=== PATIENT | male | born 1970 | race Caucasian/White ===

== ENCOUNTER 2022-05-05 13:45 | Emergency (ER) | payer MEDICAID ==
[~2022-05-05] VITALS: Ht 182.9 cm; Wt 108.2 kg
[2022-05-05] MEDS ORDERED: PROP60TA14 PO (14:08)
[2022-05-05] MEDS ORDERED: CYMB60CA4 PO (14:08)
[2022-05-05] MEDS ORDERED: RAMI1CAP21 PO (14:08)
[2022-05-05] MEDS ORDERED: ASPI81CH33 PO (14:08)
[2022-05-05] MEDS ORDERED: KETOROLAC 60MG 2ML VIAL IM ONE (14:45)
[2022-05-05] MEDS ORDERED: predniSONE 20 MG TAB PO ONE (14:45)
[2022-05-05] MEDS ORDERED: methocarbamoL 500 MG TAB PO ONE (14:45)
[2022-05-05 21:42] LABS: RSV AMPLIFICATION NEGATIVE (NEGATIVE)
[2022-05-05] MEDS ORDERED: METOPROLOL TART 25 MG TABLET PO ONE (22:25)
[2022-05-05] MEDS ORDERED: DULoxetine 30MG CAPSULE (CYMBALTA) PO ONE (22:25)
[2022-05-05 23:17] VITALS: BP 168/97
[2022-05-05 23:56] VITALS: BP 159/74
== END 2022-05-05 23:58 | disposition short-term general hospital (02) ==
LOC: M ED 13:45
DX: M54.9 Dorsalgia, unspecified (principal); M62.81 Muscle weakness (generalized); M46.96 Unspecified inflammatory spondylopathy, lumbar region; M51.36 Other intervertebral disc degeneration, lumbar region; I10 Essential (primary) hypertension; Z87.442 Personal history of urinary calculi; K21.9 Gastro-esophageal reflux disease without esophagitis; F12.10 Cannabis abuse, uncomplicated
CPT/HCPCS: 72148; 87631; 99284; J7512

== ENCOUNTER → 2022-09-12 | Outpatient (REF) | payer OTHER, MEDICAID ==
[~2022-09-12] MED LIST: ASPI81CH33 PO; CYMB60CA4 PO; PROP60TA14 PO; RAMI1CAP21 PO
[2022-09-12 18:56] LABS: MAGNESIUM LEVEL 2.2 MG/DL (1.8-2.4)
== END ==
LOC: M LAB REF 17:46
PROVIDERS: ATTEND Nurse Practitioner Family
DX: R52 Pain, unspecified (principal)

== ENCOUNTER 2022-11-14 12:07 | Emergency (ER) | payer MEDICAID, OTHER ==
[~2022-11-14] VITALS: Ht 185.4 cm; Wt 104.5 kg
[2022-11-14 12:09] VITALS: BP 134/84; TEMP 98.8; O2SAT 99
[2022-11-14] MEDS ORDERED: ATOR40TA75 PO (12:29)
[2022-11-14] MEDS ORDERED: ONDA4TAB6 PO (12:29)
== END 2022-11-14 14:46 | disposition left against medical advice (07) ==
LOC: M ED 12:07
DX: Z53.21 Procedure and treatment not carried out due to patient leaving prior to being seen by health care provider (principal)

== ENCOUNTER → 2022-12-14 | Outpatient (REF) | payer OTHER ==
[~2022-12-14] MED LIST changes: +ATOR40TA75 PO; +ONDA4TAB6 PO
[2022-12-14 18:09] LABS: BLOOD UREA NITROGEN 11 MG/DL (9-23); CALCIUM LEVEL 9.5 MG/DL (8.5-10.1); CARBON DIOXIDE LEVEL 27 MMOL/L (20-31); CHLORIDE LEVEL 104 MMOL/L (98-107); GLOMERULAR FILTRATION RATE > 60.0 (>56); GLUCOSE, FASTING 107 MG/DL (60-100); POTASSIUM SERUM 4.2 MMOL/L (3.5-5.1); SODIUM LEVEL 140 MMOL/L (136-145)
== END ==
LOC: M LAB REF 16:41
PROVIDERS: ATTEND Nurse Practitioner Family
DX: E78.5 Hyperlipidemia, unspecified (principal); R00.0 Tachycardia, unspecified

== ENCOUNTER → 2023-01-04 | Outpatient (REF) | LOC: M PLAIMG 15:12 | PROVIDERS: ATTEND Internal Medicine | DX: M50.30 Other cervical disc degeneration, unspecified cervical region (principal); M47.817 Spondylosis without myelopathy or radiculopathy, lumbosacral region; M54.2 Cervicalgia; M54.50 Low back pain, unspecified ==

== ENCOUNTER → 2023-03-14 | Outpatient (REF) | payer OTHER | LOC: M LAB REF 17:58 | PROVIDERS: ATTEND Nurse Practitioner Family | DX: R94.6 Abnormal results of thyroid function studies (principal) ==

== ENCOUNTER → 2023-05-15 | Outpatient (REF) | payer OTHER ==
[2023-05-15 13:38] LABS: C REACTIVE PROTEIN QUANTITATIV < 0.40 MG/DL (<1.0)
[2023-05-15 13:47] LABS: URIC ACID 5.3 MG/DL (3.7-9.2)
[2023-05-17 00:07] LABS: ANA (HEP2) Negative (.)
== END ==
LOC: M LAB REF 12:22
PROVIDERS: ATTEND Nurse Practitioner Family
DX: M10.9 Gout, unspecified (principal); M79.641 Pain in right hand

== ENCOUNTER 2023-11-20 17:27 | Emergency (ER) | payer OTHER ==
[~2023-11-20] VITALS: Ht 185.4 cm; Wt 107.6 kg
[~2023-11-20 17:27] MED LIST changes: -AMOX875T2 PO; -IBUP-1022 PO; -PROP120C PO; -PROP160C PO; -REFR0.5D8 OS
[2023-11-20 17:32] VITALS: BP 155/86; TEMP 97.8; O2SAT 98
== END 2023-11-20 19:10 | disposition left against medical advice (07) ==
LOC: M ED 17:27
DX: Z53.21 Procedure and treatment not carried out due to patient leaving prior to being seen by health care provider (principal)

== ENCOUNTER → 2023-11-20 | Outpatient (REF) | payer MEDICAID, OTHER, SELFPAY ==
[~2023-11-20] MED LIST changes: +AMOX875T2 PO; +IBUP-1022 PO; +ONDA-282 PO; -ONDA4TAB6 PO; +PROP120C PO; +PROP160C PO; +RAMI1.258 PO; -RAMI1CAP21 PO; +REFR0.5D8 OS
== END ==
LOC: M LAB REF 11:56
PROVIDERS: ATTEND Nurse Practitioner Family
DX: R22.0 Localized swelling, mass and lump, head (principal)

== ENCOUNTER 2023-11-21 00:39 | Inpatient (IN) | payer MEDICAID, OTHER, SELFPAY ==
[~2023-11-21] VITALS: Ht 185.4 cm; Wt 107.0 kg
[2023-11-21] MEDS: ONDANSETRON 4MG 2ML VIAL IV ONE (05:07)
[2023-11-21] MEDS: dexAMETHasone 20MG/5ML VIAL IV ONE (05:07)
[2023-11-21] MEDS: PIPERACILLIN/TAZOBACTAM SOD 4.5 GM in D5W MINI-BAG PLUS 50 ML IV ONE (05:07)
[2023-11-21] MEDS: MORPHINE 4 MG/ML 1ML VIAL IV ONE (05:07)
[2023-11-21 05:16] LABS: HEMATOCRIT 43.6 % (42.0-52.0); HEMOGLOBIN 12.2 g/dl (13.5-17.5); MEAN CORPUSCULAR HEMOGLOBIN 20.3 pg (27.0-33.0); MEAN CORPUSCULAR VOLUME 72.7 fl (80.0-96.0); PLATELET COUNT, AUTOMATED 218 10^3/uL (150-450)
[2023-11-21] MEDS ORDERED: oxyCODONE 5MG TAB PO PRN (06:00)
[2023-11-21] MEDS ORDERED: ACETAMINOPHEN 325MG/10.15ML UDC PO PRN (06:00)
[2023-11-21 06:07] LABS: BLOOD UREA NITROGEN 7 MG/DL (9-23); CARBON DIOXIDE LEVEL 23 MMOL/L (20-31); CHLORIDE LEVEL 109 MMOL/L (98-107); CREATININE FOR GFR 0.71 MG/DL (0.70-1.30); GLOMERULAR FILTRATION RATE > 60.0 (>56); GLUCOSE, FASTING 89 MG/DL (60-100); MAGNESIUM LEVEL 1.9 MG/DL (1.8-2.4); POTASSIUM SERUM 4.6 MMOL/L (3.5-5.1); SODIUM LEVEL 139 MMOL/L (136-145)
[2023-11-21] MEDS ORDERED: HOME MED LIST COMPLETE! XX SCH (06:35)
[2023-11-21 06:54] LABS: BASO # 0.1 10^3/uL (0.0-0.2); BASO % 1.4 % (0.0-1.0); EOS # 0.3 10^3/uL (0.0-0.5); EOS % 3.5 % (0.0-3.0); LYMPH # 1.7 10^3/uL (1.5-5.0); LYMPH % 21.1 % (24.0-44.0); MONO # 0.7 10^3/uL (0.0-0.8); MONO % 8.7 % (2.0-8.0); NEUTROPHILS # 5.2 10^3/uL (1.5-8.5); NEUTROPHILS % 64.9 % (36.0-66.0)
[2023-11-21 08:16] VITALS: BP 150/102; TEMP 97.5; O2SAT 95
[2023-11-21] MEDS: MAXITROL OS SCH (09:00)
[2023-11-21] MEDS ORDERED: DULoxetine 30MG CAPSULE (CYMBALTA) PO SCH (09:00)
[2023-11-21] MEDS ORDERED: ATORVASTATIN 20 MG TAB PO SCH (09:00)
[2023-11-21] MEDS ORDERED: ASPIRIN 81MG CHEW TABLET PO SCH (09:00)
[2023-11-21] MEDS ORDERED: NICOTINE 7 MG/24 HR TRANSDERMAL TD SCH (09:00)
[2023-11-21] MEDS ORDERED: ENOXAPARIN 40MG/0.4ML SYRINGE (J1650 PER 10MG) SC SCH (09:00)
[2023-11-21] MEDS ORDERED: ACETAMINOPHEN 325 MG TAB PO PRN (09:40)
[2023-11-21] MEDS ORDERED: PERCOCET 5MG/325MG TAB PO PRN (09:40)
[2023-11-21] MEDS: PROPRANOLOL 80MG LA CAP PO SCH (09:45)
[2023-11-21] MEDS: AMPICILLIN SOD/SULBACTAM SOD 3 GM in D5W MINI-BAG PLUS 100 ML IV SCH (09:45)
[2023-11-21] MEDS: PERCOCET 5MG/325MG TAB PO PRN (09:54)
[2023-11-21] MEDS: MORPHINE 2 MG/ML 1ML VIAL IV ONE (10:38)
[2023-11-21] MEDS ORDERED: ONDANSETRON 4MG 2ML VIAL IV PRN (10:45)
[2023-11-21] MEDS ORDERED: PIPERACILLIN/TAZOBACTAM SOD 3.375 GM in D5W MINI-BAG PLUS 50 ML IV SCH (11:00)
[2023-11-21] MEDS ORDERED: PROHANCE 279.3MG/ML 5ML VIAL As Ordered ONE (11:41)
[2023-11-21] MEDS ORDERED: PROHANCE 279.3MG/ML 15ML VIAL As Ordered ONE (11:41)
[2023-11-21] MEDS: NICOTINE 21MG/24HR 1 EA TRANSDERMAL TD SCH (13:09)
[2023-11-21] MEDS ORDERED: MORPHINE 2 MG/ML 1ML VIAL IV PRN (13:20)
[2023-11-22] MEDS ORDERED: PROPRANOLOL 20 MG TAB PO SCH (09:00)
[2023-11-26] MEDS ORDERED: DULoxetine 30MG CAPSULE (CYMBALTA) PO SCH (09:00)
== END 2023-11-21 14:10 | disposition left against medical advice (07) | DRG 80 ==
LOC: M ED 00:39 → M ED INP 05:56 → M MS5PR 08:15
PROVIDERS: ADMIT Student in an Organized Health Care Education/Training Program; ATTEND Internal Medicine
DX: H05.012 Cellulitis of left orbit (principal); I10 Essential (primary) hypertension; Z66 Do not resuscitate; E78.5 Hyperlipidemia, unspecified; K21.9 Gastro-esophageal reflux disease without esophagitis; H00.016 Hordeolum externum left eye, unspecified eyelid; F17.210 Nicotine dependence, cigarettes, uncomplicated; Z71.6 Tobacco abuse counseling; Z88.1 Allergy status to other antibiotic agents; Z91.041 Radiographic dye allergy status

== ENCOUNTER 2023-11-21 15:03 | Inpatient (IN) | payer MEDICAID, SELFPAY ==
[~2023-11-21] VITALS: Ht 185.4 cm; Wt 106.3 kg
[2023-11-21 17:42] LABS: BASO % 0.1 % (0.0-1.0); HEMATOCRIT 46.3 % (42.0-52.0); HEMOGLOBIN 13.1 g/dl (13.5-17.5); LYMPH # 0.6 10^3/uL (1.5-5.0); LYMPH % 5.7 % (24.0-44.0); MEAN CORPUSCULAR HEMOGLOBIN 20.2 pg (27.0-33.0); MEAN CORPUSCULAR HGB CONC 28.3 g/dl (32.0-36.5); MEAN CORPUSCULAR VOLUME 71.2 fl (80.0-96.0); MONO # 0.2 10^3/uL (0.0-0.8); MONO % 1.9 % (2.0-8.0); NEUTROPHILS # 9.6 10^3/uL (1.5-8.5); NEUTROPHILS % 91.8 % (36.0-66.0); PLATELET COUNT, AUTOMATED 309 10^3/uL (150-450); WHITE BLOOD COUNT 10.4 10^3/uL (4.0-10.0)
[2023-11-21] MEDS ORDERED: HOME MED LIST COMPLETE! XX SCH (17:55)
[2023-11-21 17:56] LABS: ERYTHROCYTE SEDIMENTATION RATE 67 mm/hr (0-20); INR 0.98; PARTIAL THROMBOPLASTIN TIME 27.2 SECONDS (24.8-34.2); PROTHROMBIN TIME 12.7 SECONDS (12.5-14.5)
[2023-11-21 18:18] LABS: ALBUMIN 4.2 G/DL (3.2-5.2); ALKALINE PHOSPHATASE 86 U/L (46-116); ALT/SGPT 28 U/L (7.0-40); AST/SGOT 22 U/L (<34); BILIRUBIN,DIRECT 0.2 MG/DL (<0.4); BILIRUBIN,TOTAL 0.5 MG/DL (0.3-1.2); BLOOD UREA NITROGEN 12 MG/DL (9-23); CALCIUM LEVEL 10.5 MG/DL (8.5-10.1); CARBON DIOXIDE LEVEL 29 MMOL/L (20-31); CHLORIDE LEVEL 106 MMOL/L (98-107); CREATININE FOR GFR 0.81 MG/DL (0.70-1.30); GLOMERULAR FILTRATION RATE > 60.0 (>56); GLUCOSE, FASTING 115 MG/DL (60-100); POTASSIUM SERUM 5.2 MMOL/L (3.5-5.1); SODIUM LEVEL 138 MMOL/L (136-145); TOTAL PROTEIN 8.2 G/DL (5.7-8.2)
[2023-11-21] MEDS ORDERED: MORPHINE 2 MG/ML 1ML VIAL IV PRN (18:40)
[2023-11-21] MEDS ORDERED: ACETAMINOPHEN 325 MG TAB PO PRN (18:40)
[2023-11-21] MEDS ORDERED: VANCOMYCIN/WATER FOR INJ 750 MG in IV 1 EA IV SCH (18:40)
[2023-11-21] MEDS: MORPHINE 2 MG/ML 1ML VIAL IV PRN (19:25)
[2023-11-21] MEDS: cefTRIAXone SOD 2 GM in DEXTROSE 5% (D5W) MINI-BAG/ADV 50 ML IV SCH (19:25)
[2023-11-21] MEDS: NICOTINE 14 MG/24 HR TRANSDERMAL TD ONE (19:25)
[2023-11-21 20:48] VITALS: BP 158/108; TEMP 98.8; O2SAT 96
[2023-11-21] MEDS: MAXITROL OS SCH (21:00)
[2023-11-21] MEDS: metroNIDAZOLE 500 MG in IV 1 EA IV SCH (21:31)
[2023-11-21] MEDS: VANCOMYCIN 2,000 MG/400 ML IV BAG *LOAD IV ONE (22:35)
[2023-11-22 00:07] VITALS: BP 159/101; TEMP 96.8; O2SAT 96
[2023-11-22] MEDS: diphenhydrAMINE 50MG/ML VIAL IV STA (00:09)
[2023-11-22 04:39] VITALS: BP 138/81; TEMP 98.1
[2023-11-22 05:53] LABS: HEMATOCRIT 41.4 % (42.0-52.0); HEMOGLOBIN 11.8 g/dl (13.5-17.5); MEAN CORPUSCULAR HEMOGLOBIN 20.2 pg (27.0-33.0); MEAN CORPUSCULAR HGB CONC 28.5 g/dl (32.0-36.5); PLATELET COUNT, AUTOMATED 299 10^3/uL (150-450); RED BLOOD COUNT 5.83 10^6/uL (4.30-6.10); WHITE BLOOD COUNT 10.1 10^3/uL (4.0-10.0)
[2023-11-22 06:19] LABS: BLOOD UREA NITROGEN 13 MG/DL (9-23); CALCIUM LEVEL 9.8 MG/DL (8.5-10.1); CARBON DIOXIDE LEVEL 26 MMOL/L (20-31); CHLORIDE LEVEL 108 MMOL/L (98-107); CREATININE FOR GFR 0.69 MG/DL (0.70-1.30); GLOMERULAR FILTRATION RATE > 60.0 (>56); GLUCOSE, FASTING 105 MG/DL (60-100); POTASSIUM SERUM 4.5 MMOL/L (3.5-5.1); SODIUM LEVEL 140 MMOL/L (136-145)
[2023-11-22] MEDS ORDERED: VANCOMYCIN 1,000MG/200 ML IV BAG IV SCH (07:00)
[2023-11-22 12:00] VITALS: BP_SYST 108; BP_SYST 119; BP_DIAS 65; BP_DIAS 66; TEMP 97.3; TEMP 97.5; O2SAT 96; O2SAT 98
[2023-11-22] MEDS: PROPRANOLOL 60MG LA CAP PO SCH (13:45)
[2023-11-22] MEDS: PANTOPRAZOLE 40MG TAB (PROTONIX) PO SCH (13:48)
[2023-11-22] MEDS: CALCIUM CARBONATE 500 MG CHEW U/D PO PRN (20:51)
[2023-11-22 21:33] VITALS: BP 148/93; TEMP 98.6; O2SAT 99
[2023-11-23 04:00] VITALS: BP 167/97; TEMP 97.9; O2SAT 95
[2023-11-23 07:57] VITALS: O2SAT 98
[2023-11-23 08:13] LABS: HEMATOCRIT 42.9 % (42.0-52.0); HEMOGLOBIN 12.3 g/dl (13.5-17.5); MEAN CORPUSCULAR HEMOGLOBIN 20.2 pg (27.0-33.0); MEAN CORPUSCULAR HGB CONC 28.7 g/dl (32.0-36.5); MEAN CORPUSCULAR VOLUME 70.6 fl (80.0-96.0); PLATELET COUNT, AUTOMATED 305 10^3/uL (150-450); RED BLOOD COUNT 6.08 10^6/uL (4.30-6.10); WHITE BLOOD COUNT 12.4 10^3/uL (4.0-10.0)
[2023-11-23 08:29] LABS: ERYTHROCYTE SEDIMENTATION RATE 38 mm/hr (0-20)
[2023-11-23 08:46] LABS: C REACTIVE PROTEIN QUANTITATIV < 0.40 MG/DL (<1.0)
[2023-11-23 08:48] LABS: BLOOD UREA NITROGEN 13 MG/DL (9-23); CALCIUM LEVEL 9.6 MG/DL (8.5-10.1); CARBON DIOXIDE LEVEL 25 MMOL/L (20-31); CHLORIDE LEVEL 108 MMOL/L (98-107); GLOMERULAR FILTRATION RATE > 60.0 (>56); GLUCOSE, FASTING 104 MG/DL (60-100); POTASSIUM SERUM 4.6 MMOL/L (3.5-5.1); SODIUM LEVEL 138 MMOL/L (136-145)
[2023-11-23 08:52] LABS: PROCALCITONIN <0.04 ng/ml
[2023-11-23 09:09] VITALS: BP 172/100
[2023-11-23] MEDS ORDERED: MINI IV SCH (09:45)
[2023-11-23] MEDS ORDERED: SULBACTAM SOD IV SCH (09:45)
[2023-11-23] MEDS ORDERED: ADV IV SCH (09:45)
[2023-11-23] MEDS ORDERED: AMPICILLIN SOD IV SCH (09:45)
[2023-11-23] MEDS ORDERED: DEXTROSE 5% IV SCH (09:45)
[2023-11-23] MEDS: AMPICILLIN SOD/SULBACTAM SOD 3 GM in D5W MINI-BAG PLUS 100 ML IV SCH (10:18)
[2023-11-23 10:26] VITALS: BP 155/90
[2023-11-23] MEDS ORDERED: AMOX875T2 PO (11:28)
[2023-11-23] MEDS ORDERED: PROP120C PO (11:28)
[2023-11-23] MEDS ORDERED: REFR0.5D8 OS (11:39)
[2023-11-23] MEDS ORDERED: IBUP-1022 PO (11:39)
[2023-11-23] MEDS ORDERED: PROP160C PO (14:18)
== END 2023-11-23 14:30 | disposition home or self-care (01) | DRG 80 ==
LOC: M ED 15:03 → M ED INP 18:40 → M MS5PR 20:45
PROVIDERS: ADMIT Student in an Organized Health Care Education/Training Program; ATTEND Student in an Organized Health Care Education/Training Program
DX: H05.012 Cellulitis of left orbit (principal); I10 Essential (primary) hypertension; E78.5 Hyperlipidemia, unspecified; K21.9 Gastro-esophageal reflux disease without esophagitis; G56.40 Causalgia of unspecified upper limb; F17.210 Nicotine dependence, cigarettes, uncomplicated; T36.8X5A Adverse effect of other systemic antibiotics, initial encounter; L29.9 Pruritus, unspecified; H20.9 Unspecified iridocyclitis; K04.7 Periapical abscess without sinus; Z88.1 Allergy status to other antibiotic agents; Z91.040 Latex allergy status

== ENCOUNTER → 2023-11-30 | Outpatient (CLI) | payer MEDICAID ==
[~2023-11-30] MED LIST changes: +AMOX875T2 PO; +IBUP-1022 PO; +PROP120C PO; +PROP160C PO; +REFR0.5D8 OS
== END ==
LOC: M EKG 09:11
PROVIDERS: ATTEND Nurse Practitioner Family
DX: R00.8 Other abnormalities of heart beat (principal); Z53.9 Procedure and treatment not carried out, unspecified reason

== ENCOUNTER → 2023-12-28 | Outpatient (CLI) | payer MEDICAID | LOC: M RAD 11:41 | PROVIDERS: ATTEND Nurse Practitioner Family | DX: R42 Dizziness and giddiness (principal) ==

== ENCOUNTER → 2024-04-04 | Outpatient (REF) | payer OTHER | LOC: M SFHCDERM 17:14 | PROVIDERS: ATTEND Physician Assistant | DX: B07.9 Viral wart, unspecified (principal); D22.4 Melanocytic nevi of scalp and neck ==

== ENCOUNTER 2024-08-11 11:08 | Emergency (ER) | payer OTHER ==
[~2024-08-11] VITALS: Ht 188 cm; Wt 98.1 kg
[2024-08-11 11:11] VITALS: TEMP 98.7
[2024-08-11] MEDS ORDERED: ASPI1CHW2 (11:32)
[2024-08-11] MEDS ORDERED: OMEP40CA5 PO (11:32)
[2024-08-11] MEDS ORDERED: ALLO100T PO (11:32)
[2024-08-11] MEDS ORDERED: RAMI1.258 PO (11:32)
[2024-08-11 12:51] LABS: BASO # 0.1 10^3/uL (0.0-0.2); BASO % 1.4 % (0.0-1.0); EOS # 0.2 10^3/uL (0.0-0.5); EOS % 2.9 % (0.0-3.0); LYMPH # 1.2 10^3/uL (1.5-5.0); LYMPH % 20.9 % (24.0-44.0); MONO # 0.6 10^3/uL (0.0-0.8); MONO % 9.5 % (2.0-8.0); NEUTROPHILS # 3.8 10^3/uL (1.5-8.5); NEUTROPHILS % 65.1 % (36.0-66.0); PLATELET COUNT, AUTOMATED 245 10^3/uL (150-450)
[2024-08-11 13:07] LABS: INR 0.88
[2024-08-11 13:14] LABS: ETHYL ALCOHOL (ETHANOL) < 0.003 % (0.000-0.010)
[2024-08-11 13:15] LABS: CALCIUM LEVEL 9.1 MG/DL (8.5-10.1); CARBON DIOXIDE LEVEL 28 MMOL/L (20-31); CHLORIDE LEVEL 107 MMOL/L (98-107); CK-MB VALUE MASS 1.1 NG/ML (<3.6); CREATININE FOR GFR 1.00 MG/DL (0.70-1.30); GLOMERULAR FILTRATION RATE > 90.0 (>56); MAGNESIUM LEVEL 2.1 MG/DL (1.8-2.4); POTASSIUM SERUM 4.4 MMOL/L (3.5-5.1); SODIUM LEVEL 141 MMOL/L (136-145)
[2024-08-11 13:16] LABS: CPK CREATINE PHOSPHOKINASE 164 U/L (46-171); MB/CK RELATIVE INDEX 0.67 (< OR =4)
[2024-08-11 13:17] LABS: FREE T4 0.86 NG/DL (0.89-1.76)
[2024-08-11 13:49] LABS: AMPHETAMINES LEVEL URINE NEGATIVE (NEGATIVE); BARBITURATES URINE NEGATIVE (NEGATIVE); BENZODIAZEPINES URINE NEGATIVE (NEGATIVE); COCAINE METABOLITE URINE NEGATIVE (NEGATIVE); METHADONE URINE NEGATIVE (NEGATIVE); OPIATES URINE NEGATIVE (NEGATIVE); PHENCYCLIDINE URINE NEGATIVE (NEGATIVE)
[2024-08-11 13:52] LABS: CANNABINOIDS URINE POSITIVE (NEGATIVE)
[2024-08-11] MEDS ORDERED: ASPI81TA26 PO (17:22)
[2024-08-11] MEDS ORDERED: PROP160C PO (17:22)
[2024-08-11] MEDS ORDERED: ONDA-282 PO (17:22)
[2024-08-11] MEDS ORDERED: HOME MED LIST COMPLETE! XX SCH (17:25)
[2024-08-11] MEDS: KETOROLAC 30 MG/ML 1 ML VIAL IV ONE (21:19)
[2024-08-11] MEDS: METHOCARBAMOL 1,000 MG/10 ML VIAL IV ONE (21:20)
[2024-08-11 22:20] VITALS: BP 155/94
[2024-08-11 22:30] VITALS: O2SAT 97
[2024-08-11] MEDS ORDERED: METH-1165 PO (22:40)
[2024-08-11] MEDS ORDERED: NAPR-837 PO (22:40)
== END 2024-08-11 23:09 | disposition home or self-care (01) ==
LOC: M ED 11:08
DX: M54.50 Low back pain, unspecified (principal); M51.360 Other intervertebral disc degeneration, lumbar region with discogenic back pain only; I47.10 Supraventricular tachycardia, unspecified; M50.21 Other cervical disc displacement, high cervical region; M50.30 Other cervical disc degeneration, unspecified cervical region; M25.78 Osteophyte, vertebrae; I10 Essential (primary) hypertension; E78.5 Hyperlipidemia, unspecified; K21.9 Gastro-esophageal reflux disease without esophagitis; F17.200 Nicotine dependence, unspecified, uncomplicated; Z88.1 Allergy status to other antibiotic agents; Z91.040 Latex allergy status
CPT/HCPCS: 70450; 71045; 72125; 72128; 72131; 72141; 72148; 80047; 80048; 80307; 82077; 82550; 82553; 83605; 83735; 84439; 84443; 84484; 85025; 85610; 85730; 93005; 93041; 94760; 96374; 96375; 99285; J1885; J2800

== ENCOUNTER → 2024-08-22 | Outpatient (REF) | payer OTHER ==
[~2024-08-22] MED LIST changes: +ALLO100T PO; +ASPI1CHW2; +ASPI81TA26 PO; +METH-1165 PO; +NAPR-837 PO; +OMEP40CA5 PO
[2024-08-22 17:49] LABS: ESTIMATED AVERAGE GLUCOSE 103.0 MG/DL (60-110)
[2024-08-22 17:50] LABS: CHOLESTEROL LEVEL 188.0 MG/DL (<200); CHOLESTEROL RISK RATIO 5.48 (<5); IRON (FE) 37.0 UG/DL (65-175); LDL CHOLESTEROL 133.3 MG/DL (<100); NON-HDL-C 153.7 MG/DL; PERCENT SATURATION 9.4 % (19.7-50.0); TRIGLYCERIDES LEVEL 102.0 MG/DL (<150)
[2024-08-22 17:53] LABS: FREE T4 1.19 NG/DL (0.89-1.76)
== END ==
LOC: M LAB REF 17:15
PROVIDERS: ATTEND Nurse Practitioner Family
DX: R79.89 Other specified abnormal findings of blood chemistry (principal); E66.9 Obesity, unspecified; Z13.6 Encounter for screening for cardiovascular disorders; R71.8 Other abnormality of red blood cells

== ENCOUNTER → 2024-08-26 | Outpatient (CLI) | payer OTHER | LOC: M EKG 09:25 | PROVIDERS: ATTEND Nurse Practitioner Family | DX: R00.8 Other abnormalities of heart beat (principal); Z53.9 Procedure and treatment not carried out, unspecified reason ==

== ENCOUNTER 2024-09-07 00:57 | Emergency (ER) | payer OTHER ==
[~2024-09-07] VITALS: Ht 182.9 cm; Wt 95.5 kg
[2024-09-07 01:01] VITALS: BP 160/80; TEMP 97.8; O2SAT 99
== END 2024-09-07 03:14 | disposition left against medical advice (07) ==
LOC: M ED 00:57
DX: Z53.21 Procedure and treatment not carried out due to patient leaving prior to being seen by health care provider (principal)

== ENCOUNTER → 2024-10-09 | Outpatient (CLI) | payer OTHER ==
[~2024-10-09] MED LIST changes: -IBUP-1022 PO; +IBUP600T42 PO
== END ==
LOC: M CARPUL 10:29
PROVIDERS: ATTEND Nurse Practitioner Family
DX: R00.8 Other abnormalities of heart beat (principal); I08.3 Combined rheumatic disorders of mitral, aortic and tricuspid valves

== ENCOUNTER → 2024-10-13 | Outpatient (REF) | payer OTHER | LOC: M LAB REF 16:36 | PROVIDERS: ATTEND Nurse Practitioner Family | DX: K02.9 Dental caries, unspecified (principal); J02.9 Acute pharyngitis, unspecified ==

== ENCOUNTER 2024-11-26 13:35 | Emergency (ER) | payer OTHER ==
[~2024-11-26] VITALS: Ht 185.4 cm; Wt 97.7 kg
[~2024-11-26 13:35] MED LIST changes: -ATOR1TAB19 PO; -CHLO125TA PO
[2024-11-26 14:26] LABS: BASO # 0.1 10^3/uL (0.0-0.2); BASO % 1.3 % (0.0-1.0); EOS # 0.3 10^3/uL (0.0-0.5); EOS % 3.5 % (0.0-3.0); LYMPH # 1.6 10^3/uL (1.5-5.0); LYMPH % 23.0 % (24.0-44.0); MONO # 0.5 10^3/uL (0.0-0.8); MONO % 7.3 % (2.0-8.0); NEUTROPHILS # 4.6 10^3/uL (1.5-8.5); NEUTROPHILS % 64.6 % (36.0-66.0); PLATELET COUNT, AUTOMATED 244 10^3/uL (150-450)
[2024-11-26 14:49] LABS: ALT/SGPT 26 U/L (7.0-40); AST/SGOT 28 U/L (<34); CALCIUM LEVEL 9.6 MG/DL (8.5-10.1); CARBON DIOXIDE LEVEL 27 MMOL/L (20-31); CHLORIDE LEVEL 103 MMOL/L (98-107); CREATININE FOR GFR 0.86 MG/DL (0.70-1.30); GLOMERULAR FILTRATION RATE > 90.0 (>56); POTASSIUM SERUM 4.7 MMOL/L (3.5-5.1); SODIUM LEVEL 142 MMOL/L (136-145)
[2024-11-26] MEDS: hydrALAZINE 20 MG/ML 1 ML VIAL IV ONE (14:56)
[2024-11-26] MEDS ORDERED: ATOR1TAB19 PO (14:58)
[2024-11-26] MEDS ORDERED: HOME MED LIST COMPLETE! XX SCH (15:00)
[2024-11-26] MEDS ORDERED: NS (Normal Saline) 0.9% 1,000 ML IV SCH (15:10)
[2024-11-26 15:13] LABS: APPEARANCE, URINE CLEAR (CLEAR); BACTERIA, URINE AUTO NEGATIVE (NEGATIVE); BILIRUBIN, URINE AUTO NEGATIVE (NEGATIVE); BLOOD, URINE BLOOD NEGATIVE (NEGATIVE); GLUCOSE, URINE (UA) AUTO NEGATIVE (NEGATIVE); KETONE, URINE AUTO NEGATIVE (NEGATIVE); LEUKOCYTE ESTERASE, URINE AUTO NEGATIVE (NEGATIVE); NITRITE, URINE AUTO NEGATIVE (NEGATIVE); PROTEIN, URINE AUTO NEGATIVE (NEGATIVE); RBC, URINE AUTO 1 /HPF (0-3); SPECIFIC GRAVITY URINE AUTO 1.015 (1.002-1.035); SQUAMOUS EPITHELIAL CELL UR AU 0 /HPF (0-6); UROBILINOGEN, URINE AUTO 0.2 mg/dL (0.0-2.0); WBC, URINE AUTO 1 /HPF (0-3)
[2024-11-26 15:43] LABS: AMPHETAMINES LEVEL URINE NEGATIVE (NEGATIVE); BARBITURATES URINE NEGATIVE (NEGATIVE); COCAINE METABOLITE URINE NEGATIVE (NEGATIVE); METHADONE URINE NEGATIVE (NEGATIVE); OPIATES URINE NEGATIVE (NEGATIVE); PHENCYCLIDINE URINE NEGATIVE (NEGATIVE)
[2024-11-26] MEDS: KETOROLAC 30 MG/ML 1 ML VIAL IV ONE (15:48)
[2024-11-26 15:49] LABS: BENZODIAZEPINES URINE POSITIVE (NEGATIVE); CANNABINOIDS URINE POSITIVE (NEGATIVE)
[2024-11-26] MEDS ORDERED: CHLO125TA PO (16:23)
[2024-11-26 16:30] VITALS: BP 169/84; TEMP 97.7; O2SAT 98
== END 2024-11-26 16:38 | disposition home or self-care (01) ==
LOC: M ED 13:35
DX: I10 Essential (primary) hypertension (principal); E78.5 Hyperlipidemia, unspecified; K21.9 Gastro-esophageal reflux disease without esophagitis; F41.9 Anxiety disorder, unspecified; Z87.442 Personal history of urinary calculi; F17.200 Nicotine dependence, unspecified, uncomplicated; Z79.82 Long term (current) use of aspirin; Z79.899 Other long term (current) drug therapy; Z91.040 Latex allergy status; Z88.0 Allergy status to penicillin
CPT/HCPCS: 36415; 70450; 71045; 80047; 80048; 80076; 80307; 81001; 84443; 85025; 87486; 87581; 87633; 87798; 93005; 96374; 96375; 99284; J0360; J1885

== ENCOUNTER → 2024-11-26 | Outpatient (REF) | payer OTHER ==
[~2024-11-26] MED LIST changes: +ATOR1TAB19 PO; +CHLO125TA PO
[2024-11-26 16:57] LABS: ALT/SGPT 25 U/L (7.0-40); AST/SGOT 18 U/L (<34); CALCIUM LEVEL 9.5 MG/DL (8.5-10.1); CARBON DIOXIDE LEVEL 29 MMOL/L (20-31); CHLORIDE LEVEL 104 MMOL/L (98-107); CHOLESTEROL LEVEL 169 MG/DL (<200); CHOLESTEROL RISK RATIO 4.80 (<5); CREATININE FOR GFR 0.91 MG/DL (0.70-1.30); GLOMERULAR FILTRATION RATE > 90.0 (>56); IRON (FE) 78 UG/DL (65-175); LDL CHOLESTEROL 112.2 MG/DL (<100); NON-HDL-C 133.8 MG/DL; POTASSIUM SERUM 4.7 MMOL/L (3.5-5.1); SODIUM LEVEL 142 MMOL/L (136-145); TRIGLYCERIDES LEVEL 108 MG/DL (<150)
== END ==
LOC: M LAB REF 16:21
PROVIDERS: ATTEND Nurse Practitioner Family
DX: I10 Essential (primary) hypertension (principal); E61.1 Iron deficiency; E78.5 Hyperlipidemia, unspecified

== ENCOUNTER 2024-12-09 23:33 | Emergency (ER) | payer OTHER ==
[~2024-12-09 23:33] MED LIST changes: +ATOR1TAB19 PO; +CHLO125TA PO
[2024-12-10] MEDS: diphenhydrAMINE 50 MG/ML VIAL IV ONE (02:08)
[2024-12-10] MEDS: KETOROLAC 30 MG/ML 1 ML VIAL IV ONE (02:10)
[2024-12-10] MEDS: NS (Normal Saline) 0.9% 1,000 ML IV ONE (02:10)
[2024-12-10 02:26] LABS: APPEARANCE, URINE HAZY (CLEAR); BACTERIA, URINE AUTO NEGATIVE (NEGATIVE); BILIRUBIN, URINE AUTO NEGATIVE (NEGATIVE); BLOOD, URINE BLOOD NEGATIVE (NEGATIVE); GLUCOSE, URINE (UA) AUTO NEGATIVE (NEGATIVE); KETONE, URINE AUTO TRACE mg/dL (NEGATIVE); LEUKOCYTE ESTERASE, URINE AUTO NEGATIVE (NEGATIVE); NITRITE, URINE AUTO NEGATIVE (NEGATIVE); PROTEIN, URINE AUTO NEGATIVE (NEGATIVE); RBC, URINE AUTO 2 /HPF (0-3); SPECIFIC GRAVITY URINE AUTO 1.020 (1.002-1.035); SQUAMOUS EPITHELIAL CELL UR AU 0 /HPF (0-6); UROBILINOGEN, URINE AUTO 2.0 mg/dL (0.0-2.0); WBC, URINE AUTO 1 /HPF (0-3)
[2024-12-10 02:34] LABS: BASO # 0.1 10^3/uL (0.0-0.2); BASO % 0.7 % (0.0-1.0); EOS # 0.2 10^3/uL (0.0-0.5); EOS % 1.6 % (0.0-3.0); LYMPH # 1.9 10^3/uL (1.5-5.0); LYMPH % 14.9 % (24.0-44.0); MONO # 0.9 10^3/uL (0.0-0.8); MONO % 7.3 % (2.0-8.0); NEUTROPHILS # 9.5 10^3/uL (1.5-8.5); NEUTROPHILS % 75.2 % (36.0-66.0); PLATELET COUNT, AUTOMATED 254 10^3/uL (150-450)
[2024-12-10 02:58] LABS: CK-MB VALUE MASS < 1.0 NG/ML (<3.6)
[2024-12-10 03:14] LABS: CALCIUM LEVEL 10.5 MG/DL (8.5-10.1); CARBON DIOXIDE LEVEL 23 MMOL/L (20-31); CHLORIDE LEVEL 102 MMOL/L (98-107); CPK CREATINE PHOSPHOKINASE 64 U/L (46-171); CREATININE FOR GFR 0.93 MG/DL (0.70-1.30); GLOMERULAR FILTRATION RATE > 90.0 (>56); POTASSIUM SERUM 4.0 MMOL/L (3.5-5.1); SODIUM LEVEL 139 MMOL/L (136-145)
[2024-12-10 04:54] LABS: CK-MB VALUE MASS < 1.0 NG/ML (<3.6); CPK CREATINE PHOSPHOKINASE 96 U/L (46-171)
[2024-12-10] MEDS: ACETAMINOPHEN *IV* 1,000 MG in IV 1 EA IV ONE (05:07)
[2024-12-10 06:15] VITALS: BP 122/76; TEMP 98
[2024-12-10 06:18] VITALS: O2SAT 94
== END 2024-12-10 06:30 | disposition home or self-care (01) ==
LOC: M ED 23:33
DX: E86.0 Dehydration (principal); R51.9 Headache, unspecified; I10 Essential (primary) hypertension; Z98.61 Coronary angioplasty status; F12.10 Cannabis abuse, uncomplicated; Z79.82 Long term (current) use of aspirin; Z79.899 Other long term (current) drug therapy; Z88.1 Allergy status to other antibiotic agents; Z91.040 Latex allergy status
CPT/HCPCS: 70450; 71045; 80048; 81001; 82550; 82553; 84484; 85025; 93005; 93041; 94760; 96361; 96365; 96366; 96375; 99285; J0131; J1200; J1885; J2765

== ENCOUNTER → 2024-12-15 | Outpatient (CLI) | payer OTHER | LOC: M EKG 09:07 | PROVIDERS: ATTEND Nurse Practitioner Family | DX: I99.8 Other disorder of circulatory system (principal) ==

== ENCOUNTER 2025-01-13 06:28 | Emergency (ER) | payer OTHER ==
[~2025-01-13] VITALS: Ht 185.4 cm; Wt 100.0 kg
[2025-01-13 06:59] LABS: BASO # 0.1 10^3/uL (0.0-0.2); BASO % 1.1 % (0.0-1.0); EOS # 0.4 10^3/uL (0.0-0.5); EOS % 5.0 % (0.0-3.0); LYMPH # 2.0 10^3/uL (1.5-5.0); LYMPH % 28.2 % (24.0-44.0); MONO # 0.6 10^3/uL (0.0-0.8); MONO % 8.8 % (2.0-8.0); NEUTROPHILS # 4.0 10^3/uL (1.5-8.5); NEUTROPHILS % 56.6 % (36.0-66.0); PLATELET COUNT, AUTOMATED 168 10^3/uL (150-450)
[2025-01-13 07:24] LABS: CK-MB VALUE MASS 1.4 NG/ML (<3.6)
[2025-01-13 07:27] LABS: CPK CREATINE PHOSPHOKINASE 67 U/L (46-171); MB/CK RELATIVE INDEX 2.08 (< OR =4)
[2025-01-13 07:28] LABS: INR 0.86
[2025-01-13 07:52] LABS: ALT/SGPT 43 U/L (7.0-40); AST/SGOT 25 U/L (<34); CALCIUM LEVEL 8.7 MG/DL (8.5-10.1); CARBON DIOXIDE LEVEL 25 MMOL/L (20-31); CHLORIDE LEVEL 109 MMOL/L (98-107); CREATININE FOR GFR 0.78 MG/DL (0.70-1.30); GLOMERULAR FILTRATION RATE > 90.0 (>56); POTASSIUM SERUM 3.8 MMOL/L (3.5-5.1); SODIUM LEVEL 141 MMOL/L (136-145)
[2025-01-13] MEDS ORDERED: RAMI10CA64 PO (08:36)
[2025-01-13 08:39] VITALS: BP 145/85; TEMP 96.7; O2SAT 97
== END 2025-01-13 08:47 | disposition home or self-care (01) ==
LOC: M ED 06:28
DX: I10 Essential (primary) hypertension (principal); E78.5 Hyperlipidemia, unspecified; Z87.442 Personal history of urinary calculi; F17.200 Nicotine dependence, unspecified, uncomplicated; Z79.82 Long term (current) use of aspirin; Z79.899 Other long term (current) drug therapy; Z91.040 Latex allergy status; Z88.1 Allergy status to other antibiotic agents